=== PATIENT | male | born 1985 | race Caucasian/White ===

== ENCOUNTER 2020-11-11 14:53 | Emergency (ER) | payer OTHER ==
[~2020-11-11] VITALS: Ht 182.9 cm; Wt 77.1 kg
[~2020-11-11 14:53] MED LIST: AMOXICILLIN 50500 M1 PO; APAP500 PO; BENTYL 20 MG TA20 M1 PO; DARVOCET-N 1001 EACH PO; FLONASE 0.05%50 MCG NASAL; IBUPROFEN 600600 M1 PO; IBUPROFEN 800800 M1 PO; NOHOMEMEDICATIONS; NORCO 5-325 TA1 EACH PO; PENICILLIN VK500 M1 PO; PENICILLIN VK500 MG PO; PEPCID40 MG PO; TRAMADOL 50 MG50 MG PO; ZPAK PO
[2020-11-11 16:52] VITALS: BP 96/59
== END 2020-11-11 16:55 | disposition left against medical advice (07) ==
LOC: M.ERS 14:53
DX: M79.89 Other specified soft tissue disorders (principal); Z53.21 Procedure and treatment not carried out due to patient leaving prior to being seen by health care provider

== ENCOUNTER 2021-02-08 08:36 | Emergency (ER) | payer OTHER ==
[~2021-02-08] VITALS: Ht 182.9 cm; Wt 77.1 kg
[2021-02-08 09:08] VITALS: BP 141/85
== END 2021-02-08 09:08 | disposition home or self-care (01) ==
LOC: M.ERS 08:36
DX: L84 Corns and callosities (principal); F17.210 Nicotine dependence, cigarettes, uncomplicated; Z90.89 Acquired absence of other organs; Z98.890 Other specified postprocedural states